=== PATIENT | female | born 1980 | race Asian ===

== ENCOUNTER 2017-03-10 15:57 | Emergency (ER) | payer OTHER ==
[~2017-03-10] VITALS: Wt 59.0 kg
[2017-03-10] MEDS ORDERED: KETOROLAC 60 MG INJ IM STA (16:45)
[2017-03-10] MEDS ORDERED: NAPR-688 PO (16:59)
--- NOTE | 2017-03-10 16:59 | ERD ---
ER Documentation Chief Complaint Date/Time DATE: 03/10/17 TIME: 16:56 Chief Complaint CHEST WALL PAIN X4 DAYS, NO SOB, ON AND OFF HPI 36-year-old female presents with pain along her right chest and ribs area for the last 4 days. The pain is increased by palpation and certain movements with her right arm. She denies any shortness of breath nausea or vomiting. She has never smoked in her life and has no medical problems. ROS All systems reviewed and are negative except as per history of present illness. PMhx/Soc Medical and Surgical Hx: pt denies Medical Hx, pt denies Surgical Hx Hx Alcohol Use: No Hx Substance Use: No Hx Tobacco Use: No Smoking Status: Never smoker Physical Exam Vitals Vital Signs Date Time Temp Pulse Resp B/P Pulse Ox O2 Delivery O2 Flow Rate FiO2 03/10/17 16:07 97.2 72 18 105/74 98 Physical Exam Const: [] No distress Head: Atraumatic Eyes: Normal Conjunctiva ENT: Normal External Ears, Nose and Mouth. Neck: Full range of motion..~ No meningismus. Resp: Clear to auscultation bilaterally Cardio: Regular rate and rhythm, no murmurs Ext: No cyanosis, or edema Neur: Awake and alert Psych: Normal Mood and Affect Results 24 hrs Current Medications Medications (Trade) Dose Ordered Sig/Fabian Route PRN Reason Start Time Stop Time Status Last Admin Dose Admin Ketorolac Tromethamine (Toradol) 60 mg ONCE STAT IM 03/10/17 16:45 03/10/17 16:46 DC Procedures/MDM Costochondritis by both history and physical exam. EKG was performed and is negative for any abnormalities. She was given a Toradol IM injection in the emergency room discharge with naproxen for 7 days. Return precautions and primary care follow-up advised EKG interpretation: Normal sinus rhythm rate of 60, normal axis, no ST or T- wave changes concerning for acute ischemia, normal intervals. Normal respiratory variation. Normal EKG Departure Diagnosis: Primary Impression: Costochondritis, acute IVET MORFIN DO Mar 10, 2017 16:58
[2017-03-10 18:31] VITALS: BP 102/70; PULSE 76; RESP 18; TEMP 98.2
== END 2017-03-10 18:32 | disposition home or self-care (01) ==
LOC: FTE 15:57
DX: M94.0 Chondrocostal junction syndrome [Tietze] (principal)
CPT/HCPCS: 96372; J1885; Z7502

== ENCOUNTER 2017-04-01 12:41 | Emergency (ER) | payer OTHER ==
[~2017-04-01] VITALS: Ht 154.9 cm; Wt 60.5 kg
[~2017-04-01 12:41] MED LIST: NAPR-688 PO
[2017-04-01 12:47] VITALS: Ht 154.9 cm; Wt 60.5 kg
[2017-04-01] MEDS ORDERED: SOD CHLORIDE 0.9% 1,000 ML IV STA (13:24)
[2017-04-01] MEDS ORDERED: morphine 4 MG/ML VIAL IV STA (13:24)
[2017-04-01] MEDS ORDERED: ONDANSETRON 4 MG INJ IV STA (13:24)
[2017-04-01 13:48] LABS: BASOPHILS % 0.5 % (0.0-2.0); EOSINOPHILS # 0.1 10^3/ul (0.0-0.5); EOSINOPHILS % 1.1 % (0.0-7.0); HEMATOCRIT 35.3 % (37.0-47.0); HEMOGLOBIN 11.7 g/dl (12.0-16.0); LYMPHOCYTES # 0.9 10^3/ul (0.8-2.9); MEAN CORPUSCULAR HEMOGLOBIN 27.4 pg (29.0-33.0); MEAN CORPUSCULAR HGB CONC 33.1 g/dl (32.0-37.0); MEAN CORPUSCULAR VOLUME 82.7 fl (82.0-101.0); MEAN PLATELET VOLUME 12.3 fl (7.4-10.4); MONOCYTE # 0.3 10^3/ul (0.3-0.9); MONOCYTES % 5.3 % (0.0-11.0); NEUTROPHILS % 76.7 % (39.0-77.0); PLATELET COUNT 200 10^3/UL (140-415); RED BLOOD COUNT 4.27 10^6/ul (4.20-5.40); RED CELL DISTRIBUTION WIDTH 13.4 % (11.5-14.5); WHITE BLOOD COUNT 5.7 10^3/ul (4.8-10.8)
[2017-04-01 14:26] LABS: ADD UMIC YES; UR ASCORBIC ACID NEGATIVE (NEGATIVE); UR BILIRUBIN (Dip) NEGATIVE (NEGATIVE); UR BLOOD (Dip) 3+ mg/dL (NEGATIVE); UR CLARITY CLOUDY (CLEAR); UR COLOR YELLOW (YELLOW); UR GLUCOSE (Dip) NEGATIVE (NEGATIVE); UR KETONES (Dip) NEGATIVE (NEGATIVE); UR LEUKOCYTE ESTERASE (Dip) 3+ Leu/ul (NEGATIVE); UR MUCUS FEW /HPF (NONE SEEN); UR NITRITE (Dip) NEGATIVE (NEGATIVE); UR RBC > 182 /HPF (0-5); UR SPECIFIC GRAVITY (Dip) 1.018 (1.003-1.030); UR SQUAMOUS EPITHELIAL CELL MANY /HPF (FEW); UR TOTAL PROTEIN (Dip) 2+ mg/dl (NEGATIVE); UR UROBILINOGEN (Dip) NEGATIVE (NEGATIVE)
[2017-04-01] MEDS ORDERED: KETOROLAC 30 MG INJ IV STA (14:34)
[2017-04-01] MEDS ORDERED: CEFTRIAXONE 1 GM/50 ML (PMX) 50 ML IVPB ONE (15:00)
[2017-04-01 15:38] LABS: ALBUMIN 3.8 g/dl (3.3-4.9); ALBUMIN/GLOBULIN RATIO 1.08; BILIRUBIN,INDIRECT 0.3 mg/dl (0-1.1); BILIRUBIN,TOTAL 0.3 mg/dl (0.2-1.3); CALCIUM 8.2 mg/dl (8.4-10.2); CREATININE 0.76 mg/dl (0.44-1.00); POTASSIUM 3.7 mmol/L (3.5-5.1); TOTAL PROTEIN 7.3 g/dl (6.1-8.1)
[2017-04-01] MEDS ORDERED: CIPR500T4 PO (16:03)
[2017-04-01] MEDS ORDERED: NAPR-688 PO (16:03)
[2017-04-01] MEDS ORDERED: NITR-58 PO (16:03)
[2017-04-01] MEDS ORDERED: ONDA4TAB11 PO (16:05)
[2017-04-01] MEDS ORDERED: HYDR-906 PO (16:05)
--- NOTE | 2017-04-01 16:12 | ERD ---
ER Documentation Chief Complaint Date/Time DATE: 04/01/17 TIME: 16:10 Chief Complaint CAME IN VIA INTAKE DUE TO LEFT FLANK PAIN WITH VOMITING HPI This 36-year-old female complains of suprapubic and flank pain with nausea and vomiting for the last 2 days. Nausea vomiting started today. She also has dysuria. No hematuria. ROS All systems reviewed and are negative except as per history of present illness. Medications Home Meds Active Scripts Hydrocodone/Acetaminophen ([place] 5-325 Tablet) 1 Each Tablet, 1 EACH PO Q6 for SEVERE PAIN LEVEL 7-10, #10 TAB Prov:IVET MORFIN DO 04/01/17 Ondansetron (Zofran Odt) 4 Mg Tab.rapdis, 4 MG PO Q6, #10 Prov:IVET MORFIN DO 04/01/17 Nitrofurantoin Monohyd Macrocr* (Macrobid*) 100 Mg Capsr, 100 MG PO BID, #10 CAP Prov:IVET MORFIN DO 04/01/17 Ciprofloxacin Hcl* (Ciprofloxacin Hcl*) 500 Mg Tablet, 500 MG PO BID for 10 Days , TAB Prov:IVET MORFIN DO 04/01/17 Naproxen* (Naproxen*) 500 Mg Tablet, 500 MG PO BID Y for PAIN, #20 TAB Prov:IVET MORFIN DO 04/01/17 Discontinued Scripts Naproxen* (Naproxen*) 500 Mg Tablet, 500 MG PO BID, #14 TAB Prov:IVET MORFIN DO 03/10/17 Allergies Allergies: Coded Allergies: No Known Allergy (Unverified , 04/01/17) PMhx/Soc Medical and Surgical Hx: pt denies Medical Hx, pt denies Surgical Hx Hx Alcohol Use: No Hx Substance Use: No Hx Tobacco Use: No Smoking Status: Never smoker Physical Exam Vitals Vital Signs Date Time Temp Pulse Resp B/P Pulse Ox O2 Delivery O2 Flow Rate FiO2 04/01/17 12:47 98.9 70 18 122/76 100 Physical Exam Const: [] Mild distress, appears uncomfortable Head: Atraumatic Eyes: Normal Conjunctiva ENT: Normal External Ears, Nose and Mouth. Neck: Full range of motion..~ No meningismus. Resp: Clear to auscultation bilaterally Cardio: Regular rate and rhythm, no murmurs Abd: Soft, Mild supra pubic tenderness without guarding or rebound, non distended. Normal bowel sounds Skin: No petechiae or rashes Back: No midline or flank tenderness Ext: No cyanosis, or edema Neur: Awake and alert Psych: Normal Mood and Affect Result Diagram: 04/01/17 1335 04/01/17 1505 Results 24 hrs Laboratory Tests Test 04/01/17 13:35 04/01/17 13:50 04/01/17 15:05 White Blood Count 5.710^3/ul Red Blood Count 4.2710^6/ul Hemoglobin 11.7g/dl Hematocrit 35.3% Mean Corpuscular Volume 82.7fl Mean Corpuscular Hemoglobin 27.4pg Mean Corpuscular Hemoglobin Concent 33.1g/dl Red Cell Distribution Width 13.4% Platelet Count 43167^3/UL Mean Platelet Volume 12.3fl Neutrophils % 76.7% Lymphocytes % 16.0% Monocytes % 5.3% Eosinophils % 1.1% Basophils % 0.5% Nucleated Red Blood Cells % 0.0/100WBC Neutrophils # (Manual) 4.410^3/ul Lymphocytes # 0.910^3/ul Monocytes # 0.310^3/ul Eosinophils # 0.110^3/ul Basophils # 0.010^3/ul Nucleated Red Blood Cells # 0.010^3/ul Urine Color YELLOW Urine Clarity CLOUDY Urine pH 5.0 Urine Specific [place] 1.018 Urine Ketones NEGATIVEmg/dL Urine Nitrite NEGATIVEmg/dL Urine Bilirubin NEGATIVEmg/dL Urine Urobilinogen NEGATIVEmg/dL Urine Leukocyte Esterase 3+Joan/ul Urine Microscopic RBC > 182/HPF Urine Microscopic WBC 79/HPF Urine Squamous Epithelial Cells MANY/HPF Urine Mucus FEW/HPF Urine Hemoglobin 3+mg/dL Urine Glucose NEGATIVEmg/dL Urine Total Protein 2+mg/dl Sodium Level 142mmol/L Potassium Level 3.7mmol/L Chloride Level 110mmol/L Carbon Dioxide Level 22mmol/L Anion Gap 14 Blood Urea Nitrogen 11mg/dl Creatinine 0.76mg/dl Glucose Level 121mg/dl Calcium Level 8.2mg/dl Total Bilirubin 0.3mg/dl Direct Bilirubin 0.00mg/dl Indirect Bilirubin 0.3mg/dl Aspartate Amino Transf (AST/SGOT) 38IU/L Alanine Aminotransferase (ALT/SGPT) 45IU/L Alkaline Phosphatase 93IU/L Total Protein 7.3g/dl Albumin 3.8g/dl Globulin 3.50g/dl Albumin/Globulin Ratio 1.08 Lipase 47U/L Current Medications Medications (Trade) Dose Ordered Sig/Fabian Route PRN Reason Start Time Stop Time Status Last Admin Dose Admin Sodium Chloride (NS) 1,000 ml @ 1,000 mls/hr Q1H STAT IV 04/01/17 13:24 04/01/17 14:23 DC 04/01/17 13:42 Morphine Sulfate (morphine) 4 mg ONCE STAT IV 04/01/17 13:24 04/01/17 13:25 DC 04/01/17 13:42 Ondansetron HCl 4 mg 4 mg ONCE STAT IV 04/01/17 13:24 04/01/17 13:25 DC 04/01/17 13:41 Ceftriaxone Sodium (Rocephin) 50 ml @ 100 mls/hr ONCE ONCE IVPB 04/01/17 15:00 04/01/17 15:29 DC 04/01/17 14:47 Ketorolac Tromethamine (Toradol) 30 mg ONCE STAT IV 04/01/17 14:34 04/01/17 14:35 DC 04/01/17 14:46 Procedures/MDM Pyelonephritis without any signs of sepsis. Patient was hydrated with normal saline and given a gram of Rocephin. She been given 4 mg of Zofran from a grams of morphine. Nausea was completely resolved her pain is much improved. I also gave her 30 mg's of Toradol. We will discharge her with Cipro and Macrobid as well as naproxen for pain and [place] for severe pain. Also Zofran ODT. Primary care follow-up and return precautions given Departure Diagnosis: Primary Impression: Pyelonephritis Additional Impression: Anemia Condition: Stable Patient Instructions: Pyelonephritis, Female (Adult) Additional Instructions: Llame al doctor MAANA y yuval darnell CHRISTIAN PARA DENTRO DE 2-3 COMER.Dgale a la secretaria que nosotros le instruimos hacer esta christian.Avise o llame si mercado condicin se empeora antes de la christian. Regresa aqui si peor o no mejor. IVET MORFIN DO Apr 01, 2017 16:12
== END 2017-04-01 16:32 | disposition home or self-care (01) ==
LOC: E/R 12:41
DX: N12 Tubulo-interstitial nephritis, not specified as acute or chronic (principal); D64.9 Anemia, unspecified; R11.2 Nausea with vomiting, unspecified
CPT/HCPCS: 80053; 81001; 83690; 85025; 96374; 96375; J0696; J1885; J2270; J2405; J7030; Z7502

== ENCOUNTER 2017-10-11 09:40 | Emergency (ER) | END 2017-10-11 11:28 | disposition home or self-care (01) ==

== ENCOUNTER 2018-10-05 14:23 | Emergency (ER) | payer OTHER ==
[~2018-10-05] VITALS: Wt 65.0 kg
[~2018-10-05 14:23] MED LIST changes: +CIPR500T4 PO; +FAMO20TA18 PO; +HC30CR25 TOP; +HYDR-4011 PO; +MED4DP PO; +NITR-58 PO; +ONDA4TAB11 PO
[2018-10-05 14:25] VITALS: BP 131/58; PULSE 76; RESP 18
[2018-10-05] MEDS ORDERED: FAMO-96 PO (15:23)
[2018-10-05] MEDS ORDERED: NAPR-985 PO (15:23)
--- NOTE | 2018-10-05 15:28 | ERD ---
ER Documentation Chief Complaint Chief Complaint INTERMITTENT COUGH FOR THE PAST FEW DAYS. CONGESTION NO FEVERS NOW HPI 37-year-old female presenting with chest wall pain with occasional shortness of breath. She states she has had these symptoms many times before however symptoms developed yesterday. She states she brought her daughter in today so she wanted to be evaluated to. Denies any radiating chest pain. Denies any fevers. Denies a cough. Has not taken medications today. Denies medical problems. NKDA. Surgical history denies. Social history denies ROS All systems reviewed and are negative except as per history of present illness. Medications Home Meds Active Scripts Famotidine* (Pepcid*) 20 Mg Tablet, 20 MG PO BID for 4 Days, #30 TAB Prov:DIONE MCKEON PA-C 10/05/18 Naproxen* (Naprosyn*) 500 Mg Tablet, 500 MG PO BID PRN for PAIN AND/OR INFLAMMAT ION, #30 TAB Prov:DIONE MCKEON PA-C 10/05/18 Hydrocortisone* Topical (Hydrocortisone* Topical) 2.5%-28.3 Gm Cream..g., 1 APPLIC TOP BID, #1 TUB Prov:JOSE EDUARDO VALERO PA-C 10/11/17 Famotidine* (Famotidine*) 20 Mg Tablet, 20 MG PO BID, #10 TAB Prov:JOSE EDUARDO VALERO PA-C 10/11/17 Methylprednisolone* (Medrol* DOSE PACK) 4 Mg/Dose-Pack Tab.ds.pk, 4 MG PO . DIRECTED, #1 PACKET Prov:JOSE EDUARDO VALERO PA-C 10/11/17 Hydrocodone/Acetaminophen ([place] 5-325 Tablet) 1 Each Tablet, 1 EACH PO Q6 for SEVERE PAIN LEVEL 7-10, #10 TAB Prov:IVET MORFIN DO 04/01/17 Ondansetron (Zofran Odt) 4 Mg Tab.rapdis, 4 MG PO Q6, #10 Prov:IVET MORFIN DO 04/01/17 Nitrofurantoin Monohyd Macrocr* (Macrobid*) 100 Mg Capsr, 100 MG PO BID, #10 CAP Prov:IVET MORFIN DO 04/01/17 Ciprofloxacin Hcl* (Ciprofloxacin Hcl*) 500 Mg Tablet, 500 MG PO BID for 10 Days, TAB Prov:IVET MORFIN DO 04/01/17 Naproxen* (Naproxen*) 500 Mg Tablet, 500 MG PO BID PRN for PAIN, #20 TAB Prov:IVET MORFIN DO 04/01/17 Allergies Allergies: Coded Allergies: No Known Allergy (Unverified , 10/11/17) PMhx/Soc Medical and Surgical Hx: pt denies Medical Hx, pt denies Surgical Hx Hx Alcohol Use: No Hx Substance Use: No Hx Tobacco Use: No Smoking Status: Never smoker FmHx Family History: No diabetes, No coronary disease, No other Physical Exam Vitals Vital Signs Date Temp Pulse Resp B/P (MAP) Pulse Ox O2 O2 Flow FiO2 Time Delivery Rate 10/05/18 99.5 76 18 131/58 99 14:25 (82) Physical Exam GENERAL: The patient is well-appearing, well-nourished, in no acute distress HEENT: Atraumatic. Conjunctivae are pink. Pupils equal, round, and reactive to light. There is no scleral icterus. Tympanic membranes clear bilaterally. Oropharynx clear. NECK: C-spine is soft and supple. There is no meningismus. There is no cervical lymphadenopathy. CHEST: Clear to auscultation bilaterally. There are no rales, wheezes or rhon chi. HEART: Regular rate and rhythm. No murmurs, clicks, rubs or gallops. Procedures/MDM EKG: Rate/Rhythm: 62 bpm normal Sinus Rhythm QRS, ST, T-waves: No changes consistent w/ acute ischemia Impression: No evidence of ischemia or arrhythmia DM: 37-year-old female presenting with chest wall pain. Patient's exam is non- concerning. She may have acid reflex reflux versus anxiety. I have low suspicion for cardiac or pulmonary emergency. I do not feel there is indication for blood work or imaging. Patient is discharged with stricter precautions and told to follow-up with primary care within 1-2 days for close elevation. Patient is told if symptoms change or worsen to return immediately to the ER. All questions answered at discharge Departure Diagnosis: Primary Impression: Chest wall pain Condition: Stable Patient Instructions: Chest Pain, Uncertain Cause Referrals: COMMUNITY CLINICS YOU HAVE RECEIVED A MEDICAL SCREENING EXAM AND THE RESULTS INDICATE THAT YOU DO NOT HAVE A CONDITION THAT REQUIRES URGENT TREATMENT IN THE EMERGENCY DEPARTMENT. FURTHER EVALUATION AND TREATMENT OF YOUR CONDITION CAN WAIT UNTIL YOU ARE SEEN IN YOUR DOCTORS OFFICE WITHIN THE NEXT 1-2 DAYS. IT IS YOUR RESPONSIBILITY TO MAKE AN APPOINTMENT FOR FOLOW-UP CARE. IF YOU HAVE A PRIMARY DOCTOR --you should call your primary doctor and schedule an appointment IF YOU DO NOT HAVE A PRIMARY DOCTOR YOU CAN CALL OUR PHYSICIAN REFERRAL HOTLINE AT IF YOU CAN NOT AFFORD TO SEE A PHYSICIAN YOU CAN CHOSE FROM THE FOLLOWING [facility] CL[facility] [id number] [facility] [address] [facility] [facility] [address] [facility] [address] [facility] [address] [facility] [address] Additional Instructions: FOLLOW UP WITH YOUR PRIMARY CARE PHYSICIAN TOMORROW.Return to this facility if you are not improving as expected. DIONE MCKEON PA-C Oct 05, 2018 15:28
== END 2018-10-05 15:36 | disposition home or self-care (01) ==
LOC: FTE 14:23
DX: R07.89 Other chest pain (principal)
CPT/HCPCS: 93005